=== PATIENT | female | born 1955 | race Caucasian/White ===

== ENCOUNTER 2017-08-31 20:30 | Emergency (ER) | payer OTHER ==
[~2017-08-31] VITALS: Ht 157.5 cm; Wt 76.0 kg
[~2017-08-31 20:30] MED LIST: ACET325T33 PO; ASPI-664 PO; BISA-57 PO; CARV6.25 PO; CLOP75TA27 PO; D-ME118S6 PO; FER325 PO; HYDR-3498 PO; HYDR10TA36 PO; ISOS30TA5 PO; LANT3I SC; LEVO250T35 PO; NOV SC; SITA50TA2 PO; VANC750P6 IV
[2017-08-31 20:34] VITALS: Ht 157.5 cm; Wt 76.0 kg
[2017-08-31] MEDS ORDERED: ACETAMINOPHEN 500 MG TAB PO STA (21:24)
--- NOTE | 2017-08-31 21:36 | ERD ---
ER Documentation Chief Complaint Date/Time DATE: 08/31/17 TIME: 21:30 Chief Complaint swelling/pain left hand x 1 hand, denies trauma HPI This is a 61-year-old female, with past medical history for insulin-dependent diabetes, hypertension and cardiovascular disease, presenting to emergency department with pain and swelling of left hand 1.5 weeks. Patient states she has pain to left wrist that extends distally to right hand. Patient went to her primary care provider about 3 weeks ago and primary care provider provided her with 2 steroid injections into left first digit. Patient states 2 weeks after injection she developed swelling and pain of left hand. Denies numbness or tingling. No loss of sensation. Patient has been taking Tylenol at home. ROS All systems reviewed and are negative except as per history of present illness. Medications Home Meds Active Scripts Cephalexin* (Keflex*) 500 Mg Capsule, 500 MG PO QID for 5 Days, CAP Prov:SANGEETA TERRY NP 09/01/17 Sulfamethoxazole/Trimethoprim* (Bactrim Ds* Tablet) 1 Each Tablet, 1 TAB PO BID , #14 TAB Prov:SANGEETA TERRY NP 09/01/17 Acetaminophen* (Tylenol*) 325 Mg Tablet, 1 TAB PO Q6 Y for PAIN AND OR ELEVATED TEMP, #20 TAB Prov:SANGEETA TERRY NP 09/01/17 Levofloxacin* (Levaquin*) 250 Mg Tablet, 250 MG PO DAILY for 14 Days, TAB Prov:RIGO HILL 05/01/16 Vancomycin/0.9 % Sod Chloride (Vanco-0.9% NaCl 750 mg/250 ml) 750 Mg/250 Ml Plast..bag, 600 MG IV DAILY for 42 Days via Home Health Prov:RIGO HILL 05/01/16 Hydralazine Hcl* (Apresoline*) 10 Mg Tab, 10 MG PO Q8 for 30 Days, TAB 3 Refills Prov:RIGO HILL 05/01/16 Ferrous Sulfate* (Ferrous Sulfate*) 325 Mg Tabec, 325 MG PO TID for 30 Days, TAB 3 Refills Prov:RIGO HILL 05/01/16 Insulin Glargine* (Lantus*) 100 Unit/Ml Soln, 11 UNIT SC QHS for 30 Days, BOTTLE 3 Refills Prov:RIGO HILL F 05/01/16 Carvedilol* (Coreg*) 6.25 Mg Tab, 12.5 MG PO BID for 30 Days, TAB 3 Refills Prov:RIGO HILL 05/01/16 Acetaminophen* (Tylenol*) 325 Mg Tablet, 2 TAB PO Q6 Y for PAIN AND OR ELEVATED TEMP, #20 TAB Prov:LO DILLON I. S[employer]IOR [employer]NER 04/14/16 Dextromethorphan Hb-Promethazine Hcl (Promethazine DM Syrup) 180 Ml Syrup, 5 ML PO Q6H Y for COUGH, #4 OZ Prov:DILLONLO I. S[employer]IOR [employer] BUSINESS PARTNER 04/14/16 Sitagliptin* (Januvia*) 50 Mg Tab, 50 MG PO DAILY for 28 Days, TAB Prov:CHUCKIE CERRATO MD 12/16/15 Isosorbide Mononitrate* (Isosorbide Mononitrate*) 30 Mg Tabsr, 30 MG PO DAILY for 28 Days, BOTTLE Prov:CHUCKIE CERRATO MD 12/16/15 Hydrocodone Bit/Acetaminophen (Anexsia 5-325 Mg Tablet) 1 Tab Tab, 1 TAB PO Q6H Y for MODERATE PAIN LEVEL 4-6 for 10 Days, TAB Prov:CHUCKIE CERRATO MD 12/16/15 Clopidogrel Bisulfate (Clopidogrel) 75 Mg Tab, 75 MG PO DAILY for 28 Days, TAB Prov:CHUCKIE CERRATO MD 12/16/15 Bisacodyl* (Dulcolax*) 5 Mg Tabec, 5 MG PO DAILY Y for CONSTIPATION for 28 Days , BOTTLE Prov:CHUCKIE CERRATO MD 12/16/15 Aspirin* (Aspirin* EC) 81 Mg Tabec, 81 MG PO DAILY for 28 Days, BOTTLE Prov:CHUCKIE CERRATO MD 12/16/15 Reported Medications Insulin Aspart* (Novolog Insulin Vial*) 100 U/Ml Vial, 0 SC SLIDING SCALE AC, VIAL 09/30/15 Allergies Allergies: Coded Allergies: ibuprofen (Verified Allergy, Unknown, 04/20/16) morphine (Verified Allergy, Unknown, 04/20/16) PMhx/Soc History of Surgery: Yes (csection; stent; vascular ) Anesthesia Reaction: No Hx Neurological Disorder: No Hx Respiratory Disorders: No Hx Cardiac Disorders: Yes (htn; ) Hx Psychiatric Problems: No Hx Miscellaneous Medical Probl: Yes (dm) Hx Alcohol Use: No Hx Substance Use: No Hx Tobacco Use: No Smoking Status: Never smoker Physical Exam Vitals Vital Signs Date Time Temp Pulse Resp B/P Pulse Ox O2 Delivery O2 Flow Rate FiO2 08/31/17 20:34 99.7 97 20 127/62 96 Physical Exam Const: No acute distress, alert Head: Atraumatic Eyes: Normal Conjunctiva ENT: Normal External Ears, Nose and Mouth. Neck: Full range of motion..~ No meningismus. Resp: Clear to auscultation bilaterally. Cardio: Regular rate and rhythm, no murmurs Abd: Soft, non tender, non distended. Normal bowel sounds Skin: No petechiae or rashes Back: No midline or flank tenderness Ext: Generalized swelling over left hand. radial pulse palpable bilaterally. Unable to make fist. capillary refill < 3 seconds. Neur: Awake and alert Psych: Normal Mood and Affect Result Diagram: 08/31/17215508/31/172155 Results 24 hrs Laboratory Tests Test 08/31/17 21:56 White Blood Count 6.410^3/ul Red Blood Count 3.5410^6/ul Hemoglobin 9.1g/dl Hematocrit 29.6% Mean Corpuscular Volume 83.6fl Mean Corpuscular Hemoglobin 25.7pg Mean Corpuscular Hemoglobin Concent 30.7g/dl Red Cell Distribution Width 13.9% Platelet Count 95453^3/UL Mean Platelet Volume 12.2fl Neutrophils % 70.4% Lymphocytes % 17.6% Monocytes % 8.9% Eosinophils % 2.5% Basophils % 0.3% Nucleated Red Blood Cells % 0.0/100WBC Neutrophils # 4.510^3/ul Lymphocytes # 1.110^3/ul Monocytes # 0.610^3/ul Eosinophils # 0.210^3/ul Basophils # 0.010^3/ul Nucleated Red Blood Cells # 0.010^3/ul Erythrocyte Sedimentation Rate 85mm/Hr Sodium Level 137mmol/L Potassium Level 4.3mmol/L Chloride Level 103mmol/L Carbon Dioxide Level 27mmol/L Anion Gap 11 Blood Urea Nitrogen 48mg/dl Creatinine 2.02mg/dl Glucose Level 338mg/dl Calcium Level 9.0mg/dl C-Reactive Protein 3.9mg/dl Current Medications Medications (Trade) Dose Ordered Sig/Genevieve Route PRN Reason Start Time Stop Time Status Last Admin Dose Admin Acetaminophen 500 mg 500 mg ONCE STAT PO 08/31/17 21:24 08/31/17 21:25 DC 08/31/17 21:57 Sodium Chloride (NS) 1,000 ml @ 1,000 mls/hr Q1H ONCE IV 09/01/17 00:00 09/01/17 00:59 DC 09/01/17 00:01 Procedures/MDM [place] [address] Radiology Main Line: [phone] DIAGNOSTIC IMAGING REPORT Patient: BONG MARTINEZ : 1955 Age: 61 Sex: F MR #: [id number] DOS: 08/31/172123 Ordering MD: SANGEETA TEE NP Location: [facility] Room/Bed: PROCEDURE: XR Left Forearm. CLINICAL INDICATION: Left forearm pain and swelling. TECHNIQUE: AP and lateral views of the left forearm were obtained. COMPARISON: No prior studies are available for comparison. FINDINGS: There is no fracture or dislocation. There is soft tissue swelling overlying the wrist. Vascular calcifications are present consistent with atherosclerosis. Articular surfaces are intact. There is no lytic or blastic lesion. There is no radiopaque foreign body. IMPRESSION: 1. Soft tissue swelling overlying the wrist. 2. Atherosclerosis. 3. Otherwise unremarkable images of the left forearm. [place] [address] Radiology Main Line: [phone] DIAGNOSTIC IMAGING REPORT Patient: BONG MARTINEZ : 1955 Age: 61 Sex: F MR #: [id number] DOS: 08/31/172123 Ordering MD: SANGEETA TEE NP Location: [facility] Room/Bed: PROCEDURE: XR Left Hand. CLINICAL INDICATION: Left hand pain and swelling. TECHNIQUE: Three views. Frontal lateral and oblique images of the left hand were obtained. COMPARISON: No prior studies are available for comparison. FINDINGS: There is no fracture or dislocation. There is diffuse soft tissue swelling. Vascular calcifications are present consistent with atherosclerosis. Articular surfaces are intact. There is no lytic or blastic lesion. There is no radiopaque foreign body. IMPRESSION: 1. Diffuse soft tissue swelling. 2. Atherosclerosis. 3. Otherwise unremarkable images of the left hand. [place] [address] Radiology Main Line: [phone] DIAGNOSTIC IMAGING REPORT Patient: BONG MARTINEZ : 1955 Age: 61 Sex: F [id number] DOS: 08/31/172123 Ordering MD: SANGEETA TEE NP Location: [facility] Room/Bed: PROCEDURE: Left wrist radiographs. CLINICAL INDICATION: Left wrist pain and swelling. TECHNIQUE: Four views. Frontal, lateral, and obliques. COMPARISON: No prior studies are available for comparison. FINDINGS: There is no fracture or dislocation. There is diffuse soft tissue swelling posteriorly. Vascular calcifications are present consistent with atherosclerosis. Articular surfaces are intact. There is no lytic or blastic lesion. There is no radiopaque foreign body. IMPRESSION: 1. Diffuse soft tissue swelling posteriorly. 2. Atherosclerosis. 3. Otherwise unremarkable images of the left wrist. MDM: This is a 61-year-old female with past medical history for insulin- dependent diabetes mellitus, hypertension and cardiovascular disease, presents to the emergency department with generalized swelling and pain of left hand. Patient had steroid injections done at her primary care office 3 weeks ago and developed swelling 1-1/2 weeks ago. Patient is unable to make a fist on physical exam. X-ray left wrist, left hand and left forearm ordered. Patient states she is allergic to Motrin and patient given Tylenol p.o. Patient is afebrile vital signs are stable. X-ray left wrist, hand and forearm reviewed by radiologist as diffuse soft tissue swelling posteriorly. Atherosclerosis. Otherwise unremarkable. CBC shows hemoglobin 9.1 and normal white blood cell count. BMP shows creatinine 2.02 and BUN 48. Glucose 338. CRP 3.9 ESR 85. Discussed findings with Dr. Masters who instructed me to give patient 1L IV fluid bolus normal saline and to have patient follow up with [employer] M[employer] Tester. Discussed findings with patient's family member. Low suspicion for flexor tenosynovitis, septic arthritis or gout myelitis. Differential diagnosis includes but not limited to cellulitis, osteoarthritis, rheumatoid arthritis, inflammation not otherwise specified. She is appropriate for outpatient management and will be given prescription for Keflex, Bactrim and Tylenol. Instructed patient to follow-up with primary care provider or lipcoat sprayer in the next 2-3 days for reassessment and additional management. Resources provided. Return to ED for any high fever, chest pain, difficulty breathing, shortness breath, wheezing, vomiting, diarrhea, abdominal pain or any new or worsening symptoms. Patient and patient's family member verbalize understanding. All questions answered at discharge. Patient discharged in compliance with the [facility] treat and release policy. Disclaimer: Inadvertent spelling and grammatical errors are likely due to EHR/ dictation software use and do not reflect on the overall quality of patient care. Also, please note that the electronic time recorded on this note does not necessarily reflect the actual time of the patient encounter. Departure Diagnosis: Primary Impression: Inflammation Condition: Stable SANGEETA TERRY NP Aug 31, 2017 21:36
[2017-08-31 22:20] LABS: BASOPHILS % 0.3 % (0.0-2.0); EOSINOPHILS # 0.2 10^3/ul (0.0-0.5); EOSINOPHILS % 2.5 % (0.0-7.0); HEMATOCRIT 29.6 % (37.0-47.0); HEMOGLOBIN 9.1 g/dl (12.0-16.0); LYMPHOCYTES # 1.1 10^3/ul (0.8-2.9); LYMPHOCYTES % 17.6 % (15.0-51.0); MEAN CORPUSCULAR HEMOGLOBIN 25.7 pg (29.0-33.0); MEAN CORPUSCULAR HGB CONC 30.7 g/dl (32.0-37.0); MEAN CORPUSCULAR VOLUME 83.6 fl (82.0-101.0); MEAN PLATELET VOLUME 12.2 fl (7.4-10.4); MONOCYTE # 0.6 10^3/ul (0.3-0.9); MONOCYTES % 8.9 % (0.0-11.0); NEUTROPHIL # 4.5 10^3/ul (1.6-7.5); NEUTROPHILS % 70.4 % (39.0-77.0); PLATELET COUNT 158 10^3/UL (140-415); RED BLOOD COUNT 3.54 10^6/ul (4.20-5.40); RED CELL DISTRIBUTION WIDTH 13.9 % (11.5-14.5); WHITE BLOOD COUNT 6.4 10^3/ul (4.8-10.8)
[2017-08-31 22:40] LABS: CREATININE 2.02 mg/dl (0.44-1.00); POTASSIUM 4.3 mmol/L (3.5-5.1)
[2017-08-31 23:07] LABS: C-REACTIVE PROTEIN 3.9 mg/dl (0.0-0.9)
--- NOTE | 2017-08-31 23:30 | RADRPT ---
PROCEDURE: XR Left Hand. CLINICAL INDICATION: Left hand pain and swelling. TECHNIQUE: Three views. Frontal lateral and oblique images of the left hand were obtained. COMPARISON: No prior studies are available for comparison. FINDINGS: There is no fracture or dislocation. There is diffuse soft tissue swelling. Vascular calcifications are present consistent with atheroscl erosis. Articular surfaces are intact. There is no lytic or blastic lesion. There is no radiopaque foreign body. IMPRESSION: 1. Diffuse soft tissue swelling. 2. Atherosclerosis. 3. Otherwise unremarkable images of the left hand. RPTAT: QQ .Fermin Packer MD, Date Time Electronically viewed and signed by .Fermin Packer MD, on 08/31/2017 23:30 .R/
--- NOTE | 2017-08-31 23:31 | RADRPT ---
PROCEDURE: Left wrist radiographs. CLINICAL INDICATION: Left wrist pain and swelling. TECHNIQUE: Four views. Frontal, lateral, and obliques. COMPARISON: No prior studies are available for comparison. FINDINGS: There is no fracture or dislocation. There is diffuse soft tissue swelling posteriorly. Vascular calcifications are present consistent wi th atherosclerosis. Articular surfaces are intact. There is no lytic or blastic lesion. There is no radiopaque foreign body. IMPRESSION: 1. Diffuse soft tissue swelling posteriorly. 2. Atherosclerosis. 3. Otherwise unremarkable images of the left wrist. RPTAT: QQ .Fermin Packer MD, Date Time Electronically viewed and signed by .Fermin Packer MD, on 08/31/2017 23:31 .R/
--- NOTE | 2017-08-31 23:32 | RADRPT ---
PROCEDURE: XR Left Forearm. CLINICAL INDICATION: Left forearm pain and swelling. TECHNIQUE: AP and lateral views of the left forearm were obtained. COMPARISON: No prior studies are available for comparison. FINDINGS: There is no fracture or dislocation. There is soft tissue swelling overlying the wrist. Vascular calcifications are present consistent wi th atherosclerosis. Articular surfaces are intact. There is no lytic or blastic lesion. There is no radiopaque foreign body. IMPRESSION: 1. Soft tissue swelling overlying the wrist. 2. Atherosclerosis. 3. Otherwise unremarkable images of the left forearm. RPTAT: QQ .Fermin Packer MD, MD Date Time Electronically viewed and signed by .Fermin Packer MD, on 08/31/2017 23:32 .R/
[2017-09-01] MEDS ORDERED: SOD CHLORIDE 0.9% 1,000 ML IV ONE
[2017-09-01] MEDS ORDERED: ACET325T33 PO (00:22)
[2017-09-01] MEDS ORDERED: SULF1TAB31 PO (00:22)
[2017-09-01] MEDS ORDERED: CEPH-443 PO (00:22)
[2017-09-01 01:07] VITALS: BP 130/65; PULSE 81; RESP 20; TEMP 99.7
== END 2017-09-01 01:08 | disposition home or self-care (01) ==
LOC: FTE 20:30
DX: M79.89 Other specified soft tissue disorders (principal); E11.9 Type 2 diabetes mellitus without complications; I10 Essential (primary) hypertension; Z79.82 Long term (current) use of aspirin; Z79.4 Long term (current) use of insulin
CPT/HCPCS: 73090; 73110; 73130; 80048; 85025; 85651; 86140; J7030; Z7502; Z7610

== ENCOUNTER 2017-11-16 19:53 | Observation (INO) | END 2017-11-17 13:13 | disposition home health service (06) ==